=== PATIENT | female | born 2000 | race Native Hawaiian/Other Pacific Islander ===

== ENCOUNTER 2020-08-16 15:24 | Emergency (ER) | payer OTHER ==
[~2020-08-16] VITALS: Ht 147.3 cm; Wt 54.4 kg
[2020-08-16 15:38] VITALS: TEMP 98
[2020-08-16 16:10] LABS: PLATELET COUNT 230 K/uL (152-353)
[2020-08-16 16:36] LABS: POTASSIUM 3.2 mmol/L (3.6-5.2)
[2020-08-16 17:35] VITALS: BP 140/91
== END 2020-08-16 17:58 | disposition home or self-care (01) ==
LOC: ED 15:24
PROVIDERS: Hospitalist
DX: J06.9 Acute upper respiratory infection, unspecified (principal); Z20.828 Contact with and (suspected) exposure to other viral communicable diseases
CPT/HCPCS: 80053; 81000; 81025; 85027; 87635; 87651; 99283; U0003

== ENCOUNTER 2020-08-24 15:19 | Emergency (ER) | payer OTHER ==
[~2020-08-24] VITALS: Ht 147.3 cm; Wt 50.3 kg
[2020-08-24 16:40] VITALS: BP 140/93; TEMP 97
== END 2020-08-24 16:41 | disposition home or self-care (01) ==
LOC: ED 15:19
DX: L98.8 Other specified disorders of the skin and subcutaneous tissue (principal); F15.90 Other stimulant use, unspecified, uncomplicated
CPT/HCPCS: 99281; 99283

== ENCOUNTER 2022-10-12 14:13 | Emergency (ER) | payer OTHER ==
[~2022-10-12] VITALS: Ht 147.3 cm; Wt 62.6 kg
[2022-10-12 17:27] VITALS: BP 129/76; TEMP 98
== END 2022-10-12 17:28 | disposition home or self-care (01) ==
LOC: ED 14:13
DX: S50.11XA Contusion of right forearm, initial encounter (principal); W01.0XXA Fall on same level from slipping, tripping and stumbling without subsequent striking against object, initial encounter
CPT/HCPCS: 96372; 99284; J1885

== ENCOUNTER 2022-11-09 19:45 | Outpatient (CLI) | payer OTHER | END 2022-11-09 21:00 | disposition home or self-care (01) | LOC: RAD 19:45 | PROVIDERS: ATTEND Physician Assistant | DX: S52.134A Nondisplaced fracture of neck of right radius, initial encounter for closed fracture (principal); Y92.89 Other specified places as the place of occurrence of the external cause ==

== ENCOUNTER 2023-04-04 12:35 | Outpatient (CLI) | payer OTHER | END 2023-04-04 18:41 | disposition home or self-care (01) | LOC: RAD 12:35 | PROVIDERS: ATTEND Physician Assistant | DX: M79.671 Pain in right foot (principal); M79.672 Pain in left foot ==